=== PATIENT | female | born 1965 | race Caucasian/White ===

== ENCOUNTER 2024-02-22 14:02 | Emergency (ER) | payer OTHER, SELFPAY ==
[2024-02-22 14:07] VITALS: BP 112/64; PULSE 70; RESP 18; TEMP 36.9; O2SAT 99; BMI 24.7
--- NOTE | 2024-02-22 14:14 | DI.RAD.S_ITS ---
PROCEDURE: XR ANKLE LT MIN 3V INDICATIONS: Fall with swelling and pain. TECHNIQUE: 3 views of the ankle were acquired. COMPARISON: None. FINDINGS: Bones: No fractures or dislocations. Ankle mortise is normally aligned. No suspicious bony lesions. Plantar and dorsal calcaneal enthesophytes. Soft tissues: Moderate tibiotalar joint effusion. Achilles tendon appears normal. IMPRESSION: No acute bony abnormality or significant effusion. Dictated by: Omega Black M.D. on 02/22/2024 at 14:38 Approved by: Omega Black M.D. on 02/22/2024 at 14:39
[2024-02-22] MEDS: ACETAMINOPHEN 325 MG TABLET 650 MG PO (15:46)
--- NOTE | 2024-02-22 16:18 | ED_ITS ---
HPI - Extremity Injury (Lower) General Chief Complaint: Extremity Injury, Lower Stated Complaint: L ankle Time Seen by Provider: 02/22/24 16:06 Source: patient and EMS Mode of arrival: Ambulatory Limitations: no limitations History of Present Illness HPI Narrative: This is 58-year-old female who comes in with complaint of left ankle pain. Patient had walked out of a store in [facility] caught her foot on an uneven sidewalk and fell felt a pop and rolled her ankle. Patient has swelling and pain of the lateral left ankle. She states painful to weightbear. Patient does not have any numbness tingling or weakness. Denies any other major injuries. Patient notes a lot of bruising and swelling over the area. Related Data Previous Rx's Medication Instructions Recorded tramadol 50 mg tablet 50 mg PO Q6H PRN pain #10 tabs 02/22/24 Allergies Allergy/AdvReac Type Severity Reaction Status Date / Time Sulfa (Sulfonamide Allergy Swelling Verified 02/22/24 14:14 Antibiotics) of Lip/Tongue/Throat Review of Systems Review of Systems ROS Unobtainable: All systems reviewed & are unremarkable except as noted in HPI and below Patient History Social History Smoking Status: Never smoker Smoking Status: Never smoker alcohol intake frequency: a few times a week Alcohol type: beer Exam Narrative Exam Narrative: GENERAL: Alert and oriented x three, female in mild distress HEENT: Head normocephalic, atraumatic, EOMI, pupils reactive, face symmetric, moist mucous membranes NECK: Supple, full range of motion EXTREMITIES: Normal range of motion, no clubbing. Patient has swelling and ecchymosis over the lateral malleoli, patient has some mild tenderness over the lateral malleoli, no other bony tenderness in the toes foot talus, heel or 2 below/fibula. 2+ dorsalis pedis. Normal sensation throughout. Patient can dorsiflex plantar flex without much issue. Neurovascularly intact. NEUROLOGICAL: Cranial nerves II through XII grossly intact. Moving all extremities SKIN: Warm, dry, no petechiae, no rashes or lesions otherwise noted. Initial Vital Signs Initial Vital Signs: Vital Signs Temperature 98.5 F 02/22/24 14:07 Pulse Rate 70 02/22/24 14:07 Respiratory Rate 18 02/22/24 14:07 Blood Pressure 112/64 02/22/24 14:07 Pulse Oximetry 99 02/22/24 14:07 Oxygen Delivery Method Room Air 02/22/24 14:07 Course Orders Ordered: Discontinued Medications Acetaminophen (Acetaminophen 325 Mg Tablet) 650 mg PO NOW ONE Stop: 02/22/24 15:42 Last Admin: 02/22/24 15:46 Dose: 650 mg Documented By: JE Vital Signs Vital signs: Vital Signs - 8 hr 02/22/24 14:07 Temperature 98.5 F Pulse Rate 70 Respiratory Rate 18 Blood Pressure 112/64 Pulse Oximetry 99 Oxygen Delivery Method Room Air MDM - Extremity Injury (Lower) Imaging Data Extremity x-ray #1: Radiologist's Impression: [address] [address] XRay Report Signed Patient: Sowmya Tolentino MR#: [id number] : 1965 Acct:[id number] Age/Sex: 58 / F Date of Service: 02/22/24 Loc: ED Accession Number: [id number] Procedure: XR ankle LT min 3V Ordering Provider: Pippa Hunter D.O. PROCEDURE: XR ANKLE LT MIN 3V INDICATIONS: Fall with swelling and pain. TECHNIQUE: 3 views of the ankle were acquired. COMPARISON: None. FINDINGS: Bones: No fractures or dislocations. Ankle mortise is normally aligned. No suspicious bony lesions. Plantar and dorsal calcaneal enthesophytes. Soft tissues: Moderate tibiotalar joint effusion. Achilles tendon appears normal. IMPRESSION: No acute bony abnormality or significant effusion. Dictated by: Omega Black M.D. on 02/22/2024 at 14:38 Approved by: Omega Black M.D. on 02/22/2024 at 14:39 [facility] Narrative Medical decision making narrative: Ankle x-ray shows no fracture dislocation, moderate talotibial effusion. Achilles tendon appears normal. Plantar and dorsal calcaneal enthesophytes. Patient x-ray imaging was reviewed possible osteophyte versus small avulsion fracture. Patient placed in ortho boot, crutches with toe-touch weight-bearing and plan for follow up in the next week for rechecked. Patient has only barely mildly tender does have quite a bit of bruising over the lateral malleolus and physical exam seems more consistent with possible ankle sprain. Discussed findings for today, need for follow-up. Disc with imaging was provided for the patient. Discharge Plan Departure Patient Disposition: Home Clinical Impression: Ankle sprain and strain Activity Restrictions/Additional Instructions: Please follow up in the next 7-10 days for recheck if you are not having any improvement of your symptoms for repeat imaging. X-ray is negative for fracture or dislocation, there is a small area of possible fracture but this may also be an osteophyte. Please follow up for repeat imaging and re-evaluation if you are not having significant improvement. Can take Tylenol up to a 1000 mg every 6 hours and/or ibuprofen up to 600 mg every 6 hours as needed. If inadequate for pain pain you can take 1-2 tablets of tramadol every 6 hours as needed. This medication can make you sleepy do not drive, perform hazardous activities or make any major decisions while taking it. This medication will make you constipated please take a stool softener once to twice daily until stools are soft and regular. Prescription sent to [facility] in [place] Use crutches, toe-touch weightbear as tolerated. If you are pain-free you can weightbear without issue. Splint Care: Keep splint clean and dry. Elevated affected body part to decrease swelling. OK to use ice pack on the affected body part. Use for 15-20 minutes each time, for 5-6x per day. If you develop worsening pain, numbness, tingling, discoloration of the affected body part, loosen the splint by loosening the NIKHIL wrap, and either see your doctor for an urgent re-assessment, or return to the Emergency Department. Return to the Emergency Department for any new or worsening symptoms. Prescriptions: New tramadol 50 mg tablet 50 mg PO Q6H PRN (Reason: pain) Qty: 10 0RF Stand Alone Forms: Patient Portal/API
[2024-02-22 17:09] VITALS: BP 110/72; PULSE 70; RESP 20; TEMP 37; O2SAT 100
== END 2024-02-22 17:11 | disposition home or self-care (01) ==
PROVIDERS: Emergency Provider Emergency Medicine
DX: S93.402A Sprain of unspecified ligament of left ankle, initial encounter (principal); S96.912A Strain of unspecified muscle and tendon at ankle and foot level, left foot, initial encounter; X50.1XXA Overexertion from prolonged static or awkward postures, initial encounter
CPT/HCPCS: 73610; 99283